=== PATIENT | male | born 1950 | race Hispanic/Latino ===

== ENCOUNTER 2020-09-16 11:15 | Day surgery (SDC) | payer MEDICARE ==
--- NOTE | 2020-09-10 15:29 | Anesthesia Consultation ---
Anesthesia Consult and Med Hx Date of service: 09/16/20 - Airway Anesthetic Teeth Evaluation: Caps, Partials (lower) ROM Head & Neck: Adequate Mental/Hyoid Distance: Adequate Mallampati Class: Class I Intubation Access Assessment: Good - Pulmonary Exam CTA: Yes - Cardiac Exam Cardiac Exam: RRR - Pre-Operative Health Status ASA Pre-Surgery Classification: ASA3 Proposed Anesthetic Plan: General - Pulmonary Hx Smoking: Yes (quit 3 yrs ago; previous cigar smoker) Hx Respiratory Symptoms: No Hx Sleep Apnea: No (FREDA PRE SCREEN HIGH RISK) - Cardiovascular System Hx Hypertension: Yes Hx Coronary Artery Disease: Yes (s/p CABG 2002, >4mets functional capacity) Hx Percutaneous Transluminal Coronary Angioplasty (PTCA): No Hx Cardia Arrhythmia: No - Central Nervous System 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
--- NOTE | 2020-09-16 07:26 | Anesthesia Day of Surgery ---
Anesthesia Day of Surgery - Day of Surgery Patient Examined: Yes Patient H&P Reviewed: Yes Patient is NPO: Yes
--- NOTE | 2020-09-16 08:41 | Short Stay Summary ---
Short Stay Documentation Date of service: 09/16/20 - History H&P: obtained from office - Allergies and Medications Current Medications: Allergies No Known Allergies Allergy (Verified 09/08/20 15:38) Home Medications Medication Instructions Recorded Confirmed Last Taken Type Altace 10 mg PO DAILY 09/08/20 09/08/20 09/16/20 05:00 History Amlodipine Besylate [Norvasc] 2.5 mg PO DAILY 09/08/20 09/08/20 09/16/20 05:00 History Aspirin [Adult Aspirin] 81 mg PO DAILY 09/08/20 09/16/20 1 Week Ago History ~09/09/20 Gabapentin [Neurontin] 300 mg PO QHS 09/08/20 09/08/20 09/16/20 05:00 History Multivit-Min/FA/Lycopen/Lutein 1 each PO DAILY 09/08/20 09/08/20 09/15/20 History [Centrum Silver Tablet] Rosuvastatin Calcium [Crestor] 40 mg PO DAILY 09/08/20 09/08/20 09/15/20 History Testosterone Cypionate 200 mg IM Q4W 09/08/20 09/16/20 08/25/20 History [Depo-Testosterone] carvediloL [Coreg] 12.5 mg PO BID 09/08/20 09/08/20 09/16/20 05:00 History Active Medications Cefazolin Sodium (Cefazolin/Sterile Water 2 Gm/20 Ml Syringe) 2 gm IV PREOP NR Stop: 09/16/20 23:59 Hydromorphone HCl (Hydromorphone 1 Mg/1 Ml Inj) 0.25 mg IV Q10MIN PRN PRN Reason: Pain, Moderate (4-6) Stop: 09/16/20 20:00 Hydromorphone HCl (Hydromorphone 1 Mg/1 Ml Inj) 0.5 mg IV Q10MIN PRN PRN Reason: Pain , Severe (7-10) Stop: 09/16/20 20:00 Lactated Ringer's (Lactated Ringers) 1,000 mls @ 100 mls/hr IV DIRECT GABRIELA Stop: 09/16/20 23:59 Last Admin: 09/16/20 06:50 Dose: 100 mls/hr Documented by: Midazolam HCl (Midazolam 2 Mg/2 Ml Inj) 2 mg IV ONCE NR Stop: 09/16/20 20:00 Last Admin: 09/16/20 07:09 Dose: 2 mg Documented by: Ondansetron HCl (Ondansetron 4 Mg/2 Ml Inj) 4 mg IV ONCE PRN PRN Reason: Nausea And Vomiting Stop: 09/16/20 12:00 - Brief post op/procedure progress note Date of procedure: 09/16/20 Pre-op diagnosis: rt stone Post-op diagnosis: same Procedure: ESWL Anesthesia: BELLE Surgeon: TARA PEREZ Condition: stable - Hospital course Hospital course: francine murray, post op info on chart - Disposition Condition at discharge: Stable Disposition: DC-01 TO HOME OR SELFCARE Short Stay Discharge Plan Follow up with: [facility] [Primary Care Provider] - 7 Days
--- NOTE | 2020-09-16 08:47 | Operative Report ---
PREOPERATIVE DIAGNOSIS: Right renal stone, 8 mm. POSTOPERATIVE DIAGNOSIS: Right renal stone, 8 mm. PROCEDURE: Right extracorporal shock wave lithotripsy. SURGEON: Bhanu Scott MD ANESTHESIA: General. ESTIMATED BLOOD LOSS: Minimal. FLUIDS: Crystalloid. COMPLICATIONS: No complications. INDICATIONS: This patient is a 70-year-old gentleman known to our service, found to have a kidney stone. Initially, we followed conservatively, it increased in size. He presents now for surgical intervention. Risks, benefits, and complications were explained. The patient's bag making machine tender is Dr. Randolph Knott with [facility]. DESCRIPTION OF PROCEDURE: The patient was taken to the operative suite, placed in a supine position. After adequate general anesthesia, his 8 mm right renal stone was localized with fluoroscopy. Extracorporal shock wave lithotripsy was administered with maximum kV of 8 and 2500 shocks. A 5-minute renal pause after 200 shocks was performed. Adequate fragmentation could be appreciated. The patient tolerated the procedure well, was extubated and taken to recovery room. He will go home on [facility] and follow up in the office. JOB# [id number] C/NTS
[2020-09-16 08:52] VITALS: BP 124/74
[~2020-09-16 11:15] MED LIST: BACTERIOSTATIC SODIUM CHLORIDE 0.9% 30 ML VIAL INFILTRATI ONE; HYDROmorphone 1 MG/1 ML INJ IV PRN; HYDROmorphone 1 MG/1 ML INJ ONE; KETOROLAC 30 MG/1 ML INJ ONE; LACTATED RINGERS 1,000 ML IV SCH; LIDOCAINE MPF (2%) 20 MG/1 ML VIAL 5 ML ONE; MIDAZOLAM 2 MG/2 ML INJ IV NR; ONDANSETRON 4 MG/2 ML INJ IV PRN; ONDANSETRON 4 MG/2 ML INJ ONE; ceFAZolin/STERILE WATER 2 GM/20 ML SYRINGE IV NR; propofoL 200 MG/20 ML VIAL IV ONE
--- NOTE | 2020-09-16 13:08 | Post Anesthesia Evaluation ---
- Post Anesthesia Evaluation Patient Participated: Yes Airway Patent: Yes Stable Respiratory Function: Yes Nausea/Vomiting: No Temp > 96.8F: Yes Pain Manageable: Yes Adequeate Hydration: Yes Anesthesia Complications: No Block Receding Appropriately: Not Applicable Patient on Ventilator: No
== END 2020-09-16 11:16 | disposition home or self-care (01) ==
LOC: OR 11:15
PROVIDERS: ATTEND Urology
DX: N20.0 Calculus of kidney (principal); Z20.828 Contact with and (suspected) exposure to other viral communicable diseases; G62.9 Polyneuropathy, unspecified; I25.10 Atherosclerotic heart disease of native coronary artery without angina pectoris; E78.00 Pure hypercholesterolemia, unspecified; I10 Essential (primary) hypertension; R31.29 Other microscopic hematuria; Z79.899 Other long term (current) drug therapy; Z87.891 Personal history of nicotine dependence; Z79.82 Long term (current) use of aspirin; Z95.1 Presence of aortocoronary bypass graft; Z98.52 Vasectomy status; Z98.890 Other specified postprocedural states; Z96.651 Presence of right artificial knee joint
CPT/HCPCS: 50590; J0690; J1170; J1885; J2250; J2405; J2704; J7120; U0003